=== PATIENT | male | born 1945 | race Caucasian/White ===

== ENCOUNTER 2023-01-04 23:21 | Inpatient (IN) | payer MEDICARE ==
[~2023-01-04] VITALS: Ht 180.3 cm; Wt 99.3 kg
--- NOTE | 2023-01-04 23:21 | NUR ---
[id number] FROM HOME C/O WITNESSED SEIZURES X3 (1ST BY 2-3MIN LONG, 2ND & 3RD BY EMS 2-3MIN LONG). PT HAS HX SZR, ON DEPAKOTE, GABAPENTIN, WHICH HE TOOK AT HIS NORMAL TIMES TODAY. 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 WAS GIVEN VERSED 5MG INSPECTOR CRYSTAL BUT HAS NOT REGAINED CONSCIOUSNESS SINCE 3RD SEIZURE. LAST SEIZURE EPISODE PER WAS 12/17/22. CL=753 INSPECTOR CRYSTAL. 20GA TO RIGHT AC ESTABLISHED INSPECTOR CRYSTAL. O2SAT WAS 80s UPON EMS ARRIVAL, PLACED ON 15L NRB AND SAT IMPROVED TO 95%. PLACED IN BED WITH SEIZURE PRECAUTIONS IN PLACE.
--- NOTE | 2023-01-04 23:21 | NUR ---
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
--- NOTE | 2023-01-04 23:28 | NUR ---
WD=[id number]
[2023-01-04] MEDS ORDERED: ONDANSETRON HCL/PF 4 MG/2 ML VIAL ONE (23:30)
[2023-01-04] MEDS ORDERED: ONDANSETRON HCL/PF 4 MG/2 ML VIAL IVP ONE (23:30)
--- NOTE | 2023-01-04 23:30 | NUR ---
EMT AT BEDSIDE FOR EKG
--- NOTE | 2023-01-04 23:33 | NUR ---
18G STARTED ON R WRIST. BLOOD COLLECTED AND SENT TO LAB
--- NOTE | 2023-01-04 23:52 | NUR ---
RT AT PT'S BEDSIDE FOR ABG
--- NOTE | 2023-01-04 23:57 | NUR ---
[facility] PAGED
--- NOTE | 2023-01-04 23:58 | NUR ---
PT TAKEN TO CT VIA [facility]
[2023-01-04] MEDS ORDERED: LEVETIRACETAM (500MG) 500 MG/5 ML VIAL IV ONE (23:59)
[2023-01-05] VITALS (19 sets, daily range): BP systolic 96–149; BP diastolic 58–76
[2023-01-05] MEDS ORDERED: LEVETIRACETAM (500MG) 1,000 MG in IV NS 0.9% 100 ML IV SCH ×2
[2023-01-05 00:01] LABS: BASOPHILS # (AUTO) 0.1 K/uL (0.0-0.2); BASOPHILS % (AUTO) 0.9 % (0.0-2.0); EOSINOPHILS % (AUTO) 13.3 % (0.0-6.0); HEMATOCRIT 50 % (39-51); HEMOGLOBIN 16.4 g/dL (13.5-17.5); LYMPHOCYTES # (AUTO) 2.3 K/uL (0.8-4.8); LYMPHOCYTES % (AUTO) 25.5 % (20.0-44.0); MEAN CORPUSCULAR HGB CONC 33 g/dl (31.0-36.0); MEAN CORPUSCULAR VOLUME 94 fL (80-96); MONOCYTES # (AUTO) 0.7 K/uL (0.1-1.30); MONOCYTES % (AUTO) 7.8 % (2.0-12.0); NEUTROPHILS # (AUTO) 4.7 K/uL (1.8-8.9); NEUTROPHILS % (AUTO) 52.5 % (43.0-81.0); PLATELET COUNT (AUTO) 107 K/uL (150-450); RED BLOOD CELL COUNT(AUTO) 5.27 MIL/uL (4.5-6.0)
[2023-01-05] MEDS ORDERED: LEVETIRACETAM (500MG) 500 MG/5 ML VIAL IV ONE (00:02)
--- NOTE | 2023-01-05 00:15 | NUR ---
PT RETURNED FROM CT
[2023-01-05 00:17] LABS: VALPROIC ACID 67 ug/mL (50-100)
[2023-01-05 00:20] LABS: ALANINE AMINOTRANSFERASE 24 U/L (12-78); ALBUMIN 3.7 g/dL (3.4-5.0); ALKALINE PHOSPHATASE 115 U/L (46-116); ASPARTATE AMINOTRANSFERASE 14 U/L (15-37); BILIRUBIN,DIRECT 0.1 mg/dL (0.0-0.2); BILIRUBIN,TOTAL 0.4 mg/dL (0.2-1.0); CALCIUM, SERUM 8.9 mg/dL (8.5-10.1); CARBON DIOXIDE 25 mmol/L (21-32); CHLORIDE 106 mmol/L (98-107); CREATININE 1.5 mg/dL (0.6-1.3); GLUCOSE 123 mg/dL (74-106); POTASSIUM 4.2 mmol/L (3.5-5.1); SODIUM SERUM 141 mmol/L (136-145); TOTAL PROTEIN, SERUM 7.4 g/dL (6.4-8.2); UREA NITROGEN, BLOOD 17 mg/dL (7-18)
--- NOTE | 2023-01-05 00:20 | NUR ---
PRE-INTUBATION V/S 120/107 92 12 100% 15L NRB
--- NOTE | 2023-01-05 00:20 | NUR ---
ADMINISTERED ETOMIDATE 30MG & ROCURONIUM 100MG
--- NOTE | 2023-01-05 00:21 | NUR ---
RT NOTE PT INTUBATED WITH 7.5 ET TUBE @ 23 CM LIP LINE. ET TUBE SECURED VIA ANCHOR FAST. VENT SETTINGS : AC 16, 550, 100%, +5. SUCTION DONE, SMALL THIN WHITE SECRETIONS NOTED. BILATERAL CHEST RISE NOTED. ALARMS ON AND AUDIBLE. VENT PLUGGED TO RED OUTLET. WILL CONTINUE TO MONITOR CLOSELY.
--- NOTE | 2023-01-05 00:21 | NUR ---
INTUBATED BY DR. SHULTZ SIZE 7.5 26CM
[2023-01-05] MEDS ORDERED: PROPOFOL 100 ML ONE (00:23)
--- NOTE | 2023-01-05 00:26 | NUR ---
PROPOFOL DRIP INITIATED @5MCG/KG/HR
[2023-01-05 00:28] LABS: ALCOHOL, BLOOD < 3 mg/dL (0-10)
--- NOTE | 2023-01-05 00:29 | NUR ---
14 FR NG TUBE IN PLACE @58CM
[2023-01-05] MEDS ORDERED: ETOMIDATE 2 MG/ML VIAL IV ONE ×2 (00:30→11:06)
[2023-01-05] MEDS ORDERED: ROCURONIUM BROMIDE 100 MG/10 ML VIAL IV ONE (00:30)
[2023-01-05] MEDS ORDERED: PROPOFOL 100 ML IV ONE (00:30)
[2023-01-05] MEDS ORDERED: IV NS 0.9% 1,000 ML BAG IV ONE (00:30)
--- NOTE | 2023-01-05 00:30 | NUR ---
X-RAY AT BEDSIDE TO CONFIRM PLACEMENT
--- NOTE | 2023-01-05 00:43 | NUR ---
RT NOTE ET TUBE ADVANCED TO 3 CM. PLACEMENT AT 26 CM LIP LINE.
--- NOTE | 2023-01-05 00:46 | NUR ---
VENT SETTINGS PER RT AC 16 PEEP 5 550 100%
[2023-01-05] MEDS ORDERED: IV NS 0.9% 1,000 ML IV ONE (01:00)
--- NOTE | 2023-01-05 01:30 | NUR ---
RT NOTE VENT SETTINGS CHANGED WITH RATE OF 18 AND FIO2 50% PER MD POST ABG RESULTS.
--- NOTE | 2023-01-05 01:50 | NUR ---
REPORT GIVEN TO KEILA KAUR @ICU
[2023-01-05 02:56] LABS: BILIRUBIN,URINE NEGATIVE (NEGATIVE); COLOR,URINE YELLOW (YELLOW); LEUKOCYTE ESTERASE ,URINE NEGATIVE (NEGATIVE); NITRITE, URINE NEGATIVE (NEGATIVE); PH,URINE 5.5 (5.0-8.0); PROTEIN,URINE 2+ mg/dl (NEGATIVE); UGLUCOSE NEGATIVE (NEGATIVE); UROBILINOGEN,URINE 0.2 EU/dL (0.2)
[2023-01-05 02:57] LABS: BACTERIA,URINE Rare /HPF (None Seen); RBC,URINE 0-2 /HPF (0-2); SQUAMOUS EPITHELIAL CELL,UR Few /HPF (None Seen); WBC,URINE 0-2 /HPF (0-3)
[2023-01-05] MEDS ORDERED: ONDANSETRON HCL/PF 4 MG/2 ML VIAL IVP PRN (04:00)
[2023-01-05] MEDS ORDERED: LORAZEPAM INJ 2 MG/ML VIAL IV PRN (04:00)
[2023-01-05] MEDS ORDERED: ACETAMINOPHEN 650 MG/SUPP.RECT RC PRN (04:00)
--- NOTE | 2023-01-05 05:10 | NUR ---
PT TAKEN TO ICU 256 VIA ACLS PROTOCOL WITH RT. VSS. ALL BELONGINGS WITH PT.
[2023-01-05] MEDS: IV NS 0.9% 1,000 ML IV PRN ×2 (05:44→18:34)
[2023-01-05] MEDS: PROPOFOL 100 ML IV PRN ×3 (05:46→09:14)
--- NOTE | 2023-01-05 05:53 | NUR ---
CISSP INITIAL NOTE PT ARRIVED TO UNIT VIA GURNEY. PT RECEIVED INTUBATED SIZE 7.5, MARKED 26 CM AT THE LIP WITH SETTING OF AC 18, TV 550, FIO2 40%, PEEP 5 WITH CURRENT O2SAT OF 99%; NO S/S OF RESP DISTRESS, NO SOB, NON-LABORED AND EQUAL BREATHING. PT ATTACHED TO BEDSIDE MONITOR, SR WITH HR OF 70. LE INTACT AND PATENT, DRAINING CLEAR AND YELLOW URINE. NGT IN LEFT NARE AT 60 CM, POSITIVE PLACEMENT CONFIRMED WITH AUSCULTATION AND POSITIVE CHEST X-RAY. BILATERAL SOFT WRIST RESTRAINTS IN PLACE WITH ACTIVE ORDER. IV ACCESS ON RIGHT WRIST 20G AND RIGHT WRIST 18G WITH NS INFUSING AT 75 ML/HR AND PROPOFOL AT 50 MCG/KG/MIN. BED IN LOWEST POSITION, CALL LIGHT WITHIN REACH, SIDE RAILS UP X3. WILL INITIATE PLAN OF CARE.
--- NOTE | 2023-01-05 06:30 | NUR ---
RN NOTE UPDATED PT'S LIZETT REGARDING PT'S CONDITION. PER LIZETT, WILL VISIT PT AT AROUND 0900. PT'S HOME PHONE NUMBER
[2023-01-05 07:13] LABS: ABG BASE EXCESS -8.6 mmol/L; ABG PCO2 55.1 mmHg (35.0-45.0); ABG PH 7.185 (7.350-7.450); ABG PO2 80.2 mmHg (75.0-100.0); COHb 0.5 % (0.5-1.5); MetHb 0.4 % (0.0-1.5); O2Hb 92.5 % (94.0-97.0); SITE, ABG Right Radial; VENT MODE, BG 100% NRB
[2023-01-05 07:13] LABS: ABG BASE EXCESS -6.3 mmol/L; ABG PCO2 37.7 mmHg (35.0-45.0); ABG PH 7.322 (7.350-7.450); ABG PO2 111.5 mmHg (75.0-100.0); COHb 0.5 % (0.5-1.5); MetHb 0.5 % (0.0-1.5); O2Hb 97.1 % (94.0-97.0); SITE, ABG Right Radial
[2023-01-05 07:13] LABS: ABG BASE EXCESS -5.9 mmol/L; ABG PH 7.289 (7.350-7.450); ABG PO2 383.6 mmHg (75.0-100.0); COHb 0.4 % (0.5-1.5); MetHb 0.6 % (0.0-1.5); O2Hb 98.7 % (94.0-97.0); SITE, ABG Right Radial
--- NOTE | 2023-01-05 07:27 | NUR ---
GUEST EXPERIENCE MANAGER CLOSING NOTE PT REMAINS IN BED SEDATED WITH PROPOFOL AT 50 MCG/KG/MIN. VITALS STABLE; TOLERATING VENT SETTINGS WELL WITH O2SAT CURRENTLY AT 100%. ENDORSED TO DAYSHIFT NURSE.
--- NOTE | 2023-01-05 07:30 | NUR ---
RN OPENING NOTE PT RECEIVED IN BED AND ON MECHANICAL VENT WITH ALL PRESCRIBED SETTINGS TOLERATING WELL O2 SAT 100%. PT SEDATED AT THIS TIME ON DIPRIVAN @50MCG. FC IS IN PLACE DRAINING URINE TO GRAVITY NG TUBE IS IN PLACE L NARE AND IS NPO AT THIS TIME. IV ACCESS R AC 20G AND R WRIST 18G INFUSING WITH DIPRIVAN AND NS @75ML/HR. BED IS LOCKED IN LOWEST POSITION AND ALL HOSPITAL SAFETY MEASURES ARE IN PLACE. WILL CONTINUE TO MONITOR THIS SHIFT.
[2023-01-05] MEDS: ENOXAPARIN SODIUM 40 MG/0.4 ML DISP.SYRIN SQ SCH (08:57)
[2023-01-05] MEDS ORDERED: IV NS 0.9% 250 ML IV PRN (09:30)
[2023-01-05] MEDS ORDERED: LEVOFLOXACIN 750 MG /D5W 150ML 750 MG in PREMIX 1 EA IV SCH (09:30)
[2023-01-05] MEDS ORDERED: VALPROATE 500 MG in IV D5W 100 ML IV SCH (10:00)
--- NOTE | 2023-01-05 10:11 | NUR ---
et tube adjusted (pushed in) from 26 cm to 28 cm halina. Addendum: 01/05/23 at 1012 by GUERITA LEON RT Amended: Links added.
[2023-01-05] MEDS ORDERED: NORMAL SALINE 10 ML DISP.SYRIN IV ONE (11:06)
[2023-01-05] MEDS ORDERED: ROCURONIUM BROMIDE 50 MG/5 ML IV ONE (11:06)
[2023-01-05] MEDS ORDERED: [UNRECOGNIZED DRUG - CODE] PO (12:27)
[2023-01-05] MEDS ORDERED: MODAFINIL PO (12:27)
[2023-01-05] MEDS ORDERED: POLY17PO4 PO (12:27)
[2023-01-05] MEDS ORDERED: MELA5TAB PO (12:27)
[2023-01-05] MEDS ORDERED: EZET10TA16 PO (12:27)
[2023-01-05] MEDS ORDERED: CLON1TAB12 PO (12:27)
[2023-01-05] MEDS ORDERED: PRED5DRO16 LEFTEYE (12:27)
[2023-01-05] MEDS ORDERED: SERT25TA PO (12:27)
[2023-01-05] MEDS ORDERED: ERGO500093 PO (12:27)
[2023-01-05] MEDS ORDERED: SEMA1PEN SQ (12:27)
[2023-01-05] MEDS ORDERED: MAGN200T4 PO (12:27)
[2023-01-05] MEDS ORDERED: GABA300C PO (12:27)
[2023-01-05] MEDS ORDERED: DEXT20TA6 PO (12:27)
[2023-01-05] MEDS ORDERED: DIVA250T47 PO (12:27)
[2023-01-05] MEDS ORDERED: ATOR40TA PO (12:27)
[2023-01-05] MEDS ORDERED: FOLI0.8C PO (12:27)
[2023-01-05] MEDS ORDERED: DORZ10DR11 LEFTEYE (12:27)
[2023-01-05] MEDS ORDERED: PSYL3.4P6 PO (12:27)
[2023-01-05] MEDS: KEPPRA 1000 MG in IV NS 100 ML IV SCH ×2 (13:11→23:59)
--- NOTE | 2023-01-05 13:50 | NUR ---
RT PER DR AGEE RR LOWERED TO 16 AND FIO2 TITRATED TO 30% Addendum: 01/05/23 at 1521 by SOLIS IBANEZ RT Amended: Links added.
--- NOTE | 2023-01-05 15:00 | NUR ---
RN NOTE: NEURO PT UNABLE TO FOLLOW COMMANDS WHEN PROMPTED, BUT FOLLOWS THIS NURSE'S FINGER FROM SIDE TO SIDE. WILL CONTINUE TO MONITOR THIS SHIFT.
--- NOTE | 2023-01-05 16:00 | NUR ---
RN NOTE: NEURO PT UNABLE TO FOLLOW COMMANDS WHEN PROMPTED. PT PULLS AWAY FROM TOUCH AND LIGHT PAIN WHEN SUCTIONING. WILL CONTINUE TO MONITOR THIS SHIFT.
--- NOTE | 2023-01-05 17:14 | NUR ---
RN NOTE: UA UA COLLECTED AT THIS TIME AND READY FOR PICKUP. LAB HAS BEEN NOTIFIED
--- NOTE | 2023-01-05 17:46 | NUR ---
RN NOTE: NEURO PT TRACKS THIS NURSE'S FINGER FROM SIDE TO SIDE AND UP AND DOWN. PT TRACKS FINGER BUT DOES NOT DO SO WHEN ASKED TO FOLLOW COMMANDS. PT UNABLE TO FOLLOW COMMANDS WHEN PROMPTED. WILL CONTINUE TO MONITOR THIS SHIFT.
[2023-01-05 18:17] LABS: BILIRUBIN,URINE NEGATIVE (NEGATIVE); COLOR,URINE YELLOW (YELLOW); LEUKOCYTE ESTERASE ,URINE TRACE (NEGATIVE); NITRITE, URINE NEGATIVE (NEGATIVE); PROTEIN,URINE NEGATIVE (NEGATIVE); UGLUCOSE NEGATIVE (NEGATIVE); UROBILINOGEN,URINE 0.2 EU/dL (0.2)
[2023-01-05 18:27] LABS: BACTERIA,URINE 1+ /HPF (None Seen); RBC,URINE 51-80 /HPF (0-2); SQUAMOUS EPITHELIAL CELL,UR 0-2 /HPF (None Seen)
[2023-01-05 18:28] LABS: URINE AMORPHOUS URATE Few /HPF (None Seen)
[2023-01-05 18:32] LABS: EOSINOPHIL,URINE None Seen
--- NOTE | 2023-01-05 19:00 | NUR ---
OPENING RN NOTES; RECEIVED PT IN BED INTUBATED WITH AC OF16, PEEP 5, FIO2 30% AND TV 550.DOES NOT FOLLOW TRACK ON COMMANDS, ATTEMPTS TO WIGGLE LEFT FINGERS ON COMMANDS. WILL CONTINUE TO MONITOR DURING SHIFT.
--- NOTE | 2023-01-05 19:12 | NUR ---
RN CLOSING NOTE PT IN BED AND ON MECHANICAL VENT WITH ALL PRESCRIBED SETTINGS TOLERATING WELL O2 SAT 96%. PT IS NOT SEDATED AT THIS TIME. PER DR. AGEE, STANDING ORDER TO EXTUBATE IF PT'S NEURO STATUS IMPROVES. FC IS IN PLACE DRAINING URINE TO GRAVITY -530ML. NG TUBE IS IN PLACE L NARE AND IS NPO AT THIS TIME. IV ACCESS R AC 20G AND R WRIST 18G INFUSING WITH NS @75ML/HR. BED IS LOCKED IN LOWEST POSITION AND ALL HOSPITAL SAFETY MEASURES ARE IN PLACE. WILL ENDORSE TO SOLAR ELECTRIC INSTALLER FOR ALBARO.
--- NOTE | 2023-01-05 20:00 | NUR ---
RENAL SCAN DONE BY VAULT CLERK AT BEDSIDE.
[2023-01-05] MEDS: VALPROATE 500 MG in IV D5W 100 ML IV SCH (20:16)
[2023-01-06] VITALS (25 sets, daily range): BP systolic 127–148; BP diastolic 70–79
[2023-01-06 04:37] LABS: BASOPHILS # (AUTO) 0.1 K/uL (0.0-0.2); BASOPHILS % (AUTO) 0.8 % (0.0-2.0); EOSINOPHILS % (AUTO) 1.8 % (0.0-6.0); HEMATOCRIT 47 % (39-51); HEMOGLOBIN 15.4 g/dL (13.5-17.5); LYMPHOCYTES # (AUTO) 1.2 K/uL (0.8-4.8); LYMPHOCYTES % (AUTO) 10.5 % (20.0-44.0); MEAN CORPUSCULAR HGB CONC 33 g/dl (31.0-36.0); MEAN CORPUSCULAR VOLUME 93 fL (80-96); MONOCYTES # (AUTO) 1.6 K/uL (0.1-1.30); MONOCYTES % (AUTO) 13.3 % (2.0-12.0); NEUTROPHILS # (AUTO) 8.6 K/uL (1.8-8.9); NEUTROPHILS % (AUTO) 73.6 % (43.0-81.0); PLATELET COUNT (AUTO) 92 K/uL (150-450); RED BLOOD CELL COUNT(AUTO) 4.99 MIL/uL (4.5-6.0); WHITE BLOOD COUNT (AUTO) 11.8 K/uL (4.3-11.0)
[2023-01-06] MEDS: VALPROATE 500 MG in IV D5W 100 ML IV SCH ×2 (04:46→13:17)
[2023-01-06 04:57] LABS: CALCIUM, SERUM 8.9 mg/dL (8.5-10.1); CREATININE 1.2 mg/dL (0.6-1.3); MAGNESIUM 1.5 mg/dL (1.8-2.4); PHOSPHORUS 3.4 mg/dL (2.5-4.9)
--- NOTE | 2023-01-06 07:00 | NUR ---
CLOSING NOTES; PT STABLE THROUGHOUT SHIFT REPORTED OFF TO DAY RN.
--- NOTE | 2023-01-06 07:10 | NUR ---
CONTAMINATED LAND CONSULTANT NOTE: RECEIVED PT IN BED. AOX1. INTUBATED BUT ABLE TO ANSWER TO SIMPLE QUESTION. ABLE TO DENY PAIN OR DISCOMFORT. NO SOB. NO DYSPNEA. SKIN WARM AND DRY TO TOUCH. AFEBRILE. ON NGT. PATENT AND INTACT. PT WITH' RAC AND R WRIST 18G. PATENT AND INTACT. CALL LIGHT WITHIN REACH.L BED KEPT LOW AND LOCK FOR SAFETY.
--- NOTE | 2023-01-06 07:25 | NUR ---
MEDICAL UNIT SECRETARY NOTE: MD WITH ORDER TO EXTUBATE. RN AND RT AT BEDSIDE. EXTUBATE WITH NO RESP DISTRESS NOTED. NO SOB. NO DYSPNEA. PT IS AAOX1. ABLE TO ANSWER SIMPLE QUESTIONS. ABLE TO DENY PAIN OR DISCOMFORT. ON 5LPM NC. TOLERATING WELL 02SAT 96%.
--- NOTE | 2023-01-06 07:30 | NUR ---
RT PER DR MARTINES ORDER PATIENT WAS WEANED AND EXTUBATED. PLACED ON 5L NC TOLERATED WELL. NO SOB NOTED. KEILA BRO AT BEDSIDE. Addendum: 01/06/23 at 1038 by SOLIS IBANEZ RT Amended: Links added.
[2023-01-06] MEDS: IV NS 0.9% 1,000 ML IV PRN (07:40)
[2023-01-06] MEDS: Magnesium 1GM/D5W 100ML PREMIX 100 ML IV SCH ×2 (09:03→10:24)
[2023-01-06] MEDS: ENOXAPARIN SODIUM 40 MG/0.4 ML DISP.SYRIN SQ SCH (09:07)
[2023-01-06] MEDS: LEVOFLOXACIN 750 MG /D5W 150ML 750 MG in PREMIX 1 EA IV SCH (10:24)
[2023-01-06 10:29] LABS: ABG BASE EXCESS -2.3 mmol/L; ABG OXYGEN SATURATION 94.3 % (92.0-98.5); ABG PCO2 33.9 mmHg (35.0-45.0); ABG PH 7.416 (7.350-7.450); ABG PO2 72.2 mmHg (75.0-100.0); MetHb 0.4 % (0.0-1.5); SITE, ABG Right Radial; VENT MODE, BG 5L NC
[2023-01-06] MEDS: IPRATROPIUM NEB FS 0.5 MG/2.5 ML AMPUL.NEB NEB SCH ×3 (10:30→19:57)
[2023-01-06] MEDS: ALBUTEROL HALF STRENGTH 1.25 MG/3 ML VIAL.NEB NEB SCH ×3 (10:30→19:57)
[2023-01-06] MEDS: KEPPRA 1000 MG in IV NS 100 ML IV SCH (12:02)
--- NOTE | 2023-01-06 13:05 | NUR ---
SQUEEGEE OPERATOR NOTE: SEEN AND EXAMINED BY DR. PAREKH AT BEDSIDE.
--- NOTE | 2023-01-06 18:16 | NUR ---
THEATER MANAGER CLOSING NOTE: PT IN BED AOX1 WITH CONFUSION. ABLE TO DENY PAIN OR DISCOMFORT. S/P EXTUBATED ON 5LPM VIA NC 02SAT 97% NO SOB NO DYSPNEA. SKIN WARM AND DRY TO TOUCH. AFEBRILE . PT ON NGT PATENT AND INTACT. RAC AND R WRIST IV PATENT AND INTACT. NO S/S OF INFILTRATION. CALL LIGHT WITHIN REACH.
--- NOTE | 2023-01-06 19:00 | NUR ---
RN OPENING NOTES; RECEIVED REPORT FROM OUTGOING RN. PT QUIET IN BED. RESPONSE TO COMMANDS BY OPENING EYES AND TRACKING FINGERS. MOTOR HOTEL MANAGER EQUAL AND CAN WIGGLE FINGERS ON COMMAND. IV OF NS INFUSING AT 75 MLS/HR AND ALSO KVO AT 10 MLS/HR. WILL CONTINUE TO MONITOR DURING SHIFT.
--- NOTE | 2023-01-06 19:56 | NUR ---
RT NOTE PT RECEIVED AWAKE ON 5 LPM NASAL CANNULA. PT TOLERATING WELL. SPO2 @ 97, HR 86, RR 20. NO S/S OF DISTRESS NOTED. HHN TX GIVEN ORDERED. WILL CONTINUE TO MONITOR CLOSELY.
[2023-01-06] MEDS ORDERED: LEVETIRACETAM SOL (5 ML) 100 MG/ML UDC NG SCH (21:00)
[2023-01-06] MEDS: DIVALPROEX SODIUM 125 MG CAP.SPRINK NG SCH (22:25)
[2023-01-07] VITALS (24 sets, daily range): BP systolic 112–156; BP diastolic 64–97
[2023-01-07] MEDS: IV NS 0.9% 1,000 ML IV PRN (00:31)
[2023-01-07] MEDS: IPRATROPIUM NEB FS 0.5 MG/2.5 ML AMPUL.NEB NEB SCH ×4 (01:40→20:02)
[2023-01-07] MEDS: ALBUTEROL HALF STRENGTH 1.25 MG/3 ML VIAL.NEB NEB SCH ×4 (01:40→20:02)
--- NOTE | 2023-01-07 01:40 | NUR ---
SPOKEMN WITH ZEYAD AT TRANSFER DEPT AT [facility]. NO BED AT THE TIME. DO COVID TEST JUST BEFORE TRANSFER.
[2023-01-07 04:29] LABS: BASOPHILS # (AUTO) 0.1 K/uL (0.0-0.2); BASOPHILS % (AUTO) 0.5 % (0.0-2.0); EOSINOPHILS % (AUTO) 1.3 % (0.0-6.0); HEMATOCRIT 46 % (39-51); HEMOGLOBIN 15.4 g/dL (13.5-17.5); LYMPHOCYTES # (AUTO) 1.1 K/uL (0.8-4.8); LYMPHOCYTES % (AUTO) 10.6 % (20.0-44.0); MEAN CORPUSCULAR HGB CONC 34 g/dl (31.0-36.0); MEAN CORPUSCULAR VOLUME 94 fL (80-96); MONOCYTES # (AUTO) 1.7 K/uL (0.1-1.30); MONOCYTES % (AUTO) 15.6 % (2.0-12.0); NEUTROPHILS # (AUTO) 7.8 K/uL (1.8-8.9); PLATELET COUNT (AUTO) 86 K/uL (150-450); RED BLOOD CELL COUNT(AUTO) 4.89 MIL/uL (4.5-6.0); WHITE BLOOD COUNT (AUTO) 10.9 K/uL (4.3-11.0)
[2023-01-07 04:42] LABS: ALBUMIN 2.5 g/dL (3.4-5.0); BILIRUBIN,TOTAL 0.8 mg/dL (0.2-1.0); CALCIUM, SERUM 9.1 mg/dL (8.5-10.1); CREATININE 1.1 mg/dL (0.6-1.3); MAGNESIUM 1.7 mg/dL (1.8-2.4); PHOSPHORUS 2.9 mg/dL (2.5-4.9); POTASSIUM 4.5 mmol/L (3.5-5.1); TOTAL PROTEIN, SERUM 6.2 g/dL (6.4-8.2)
[2023-01-07] MEDS: DIVALPROEX SODIUM 125 MG CAP.SPRINK NG SCH ×3 (05:36→22:03)
--- NOTE | 2023-01-07 07:00 | NUR ---
PATIENT STABLE THROUGHOUT SHIFT. REPORTED OFF TO DAY RN.
[2023-01-07 07:44] LABS: LYMPHOCYTES % (MANUAL) 11 % (16-48); NEUTROPHILS % (MANUAL) 73 (42-76)
[2023-01-07 07:45] LABS: EOSINOPHILS % (MANUAL) 3 % (0-4); MONOCYTES % (MANUAL) 13 % (0-11.0)
[2023-01-07] MEDS: ENOXAPARIN SODIUM 40 MG/0.4 ML DISP.SYRIN SQ SCH (09:00)
--- NOTE | 2023-01-07 09:00 | NUR ---
RN NOTES NOTIFIED DR. BABCOCK THAT PT'S LATEST PLT LEVEL IS 86. PER THE DOCTOR, HOLD DOSE AT THIS TIME.
[2023-01-07] MEDS: Magnesium 1GM/D5W 100ML PREMIX 100 ML IV SCH ×2 (09:44→12:12)
[2023-01-07] MEDS ORDERED: FUROSEMIDE 40 MG/4 ML VIAL IV ONE (10:00)
[2023-01-07] MEDS: LEVOFLOXACIN 750 MG /D5W 150ML 750 MG in PREMIX 1 EA IV SCH (10:09)
--- NOTE | 2023-01-07 12:00 | NUR ---
RN NOTES PATIENT SEEN BY SPEECH THERAPIST AND HAS BEEN CLEARED FOR PUREE DIET.
--- NOTE | 2023-01-07 14:30 | NUR ---
RN NOTES NOTIFIED DR. ALMANZA THAT PT WAS VERY AGITATED AND COMBATIVE WHEN ATTEMPTING TO TRANSPORT PT TO MRI. DR. ALMANZA AWARE.
--- NOTE | 2023-01-07 16:20 | NUR ---
RN NOTES RECEIVED CALL FROM [facility] AND SPOKE TO RIZWANA. HE IS CURRENTY WORKING ON ROOM REQUEST FOR PT AND WILL CALL BACK ONCE A ROOM IS AVAILABLE.
--- NOTE | 2023-01-07 18:37 | NUR ---
RN NOTES RECEIVED ANOTHER CALL FROM [facility] STATING THAT THEY WERE UNABLE TO REACH DR. MATUTE FOR PHYSICIAN TO PHYSICIAN REPORT. CALLED AND LEFT A MESSAGE FOR THE DOCTOR TO CALL BACK [facility] AT [phone].
--- NOTE | 2023-01-07 19:00 | NUR ---
RECEIVED REPORT FROM DAY RN. PATIENT IN BED AND STABLE. CONFUSED ASKING ABOUT HIS PHONE. DISORIENRTED TO TIME, PLACE AND PEOPLE. AWAKE AND TALKING. WILL GÉNESIS TO ALIS CALDWELL.
--- NOTE | 2023-01-07 19:31 | NUR ---
RN CLOSING NOTES PT IS COMFORTABLE, ALL DUE MEDS GIVEN. PT HAS BED AVAILABLE PER [facility], BUT PENDING PEER TO PEER REPORT FROM DR. MATUTE. REPORT GIVEN TO BLU PEDRAZA FOR CONTINUATION OF CARE.
--- NOTE | 2023-01-07 23:00 | NUR ---
GIVEN REPORT TO MARYURI PINA RN AT [facility].
--- NOTE | 2023-01-08 00:30 | NUR ---
GIVEN REPORT TO [facility]. PATIENT DISCHARGEDFROM ICU ACCOMPANIED BY [facility] EN ROUTE TO [facility]. AWAKE AND STILL CONFUSED.
== END 2023-01-07 23:50 | disposition short-term general hospital (02) | DRG 100 ==
LOC: ER 23:23 → ICU 01-05 01:46
PROVIDERS: ADMIT Nurse Practitioner Acute Care; ATTEND Nurse Practitioner Acute Care
PROC: 5A1945Z Respiratory Ventilation, 24-96 Consecutive Hours (ICD-10-PCS; principal; 2023-01-05)
PROC: 0BH17EZ Insertion of Endotracheal Airway into Trachea, Via Natural or Artificial Opening (ICD-10-PCS; 2023-01-05)
DX: G40.901 Epilepsy, unspecified, not intractable, with status epilepticus (principal); J96.02 Acute respiratory failure with hypercapnia; N17.0 Acute kidney failure with tubular necrosis; I62.03 Nontraumatic chronic subdural hemorrhage; J69.0 Pneumonitis due to inhalation of food and vomit; G91.2 (Idiopathic) normal pressure hydrocephalus; D68.69 Other thrombophilia; J98.19 Other pulmonary collapse; G93.41 Metabolic encephalopathy; J98.11 Atelectasis; Z20.822 Contact with and (suspected) exposure to COVID-19; Z86.73 Personal history of transient ischemic attack (TIA), and cerebral infarction without residual deficits; Z95.2 Presence of prosthetic heart valve; Z98.2 Presence of cerebrospinal fluid drainage device; I10 Essential (primary) hypertension; G47.33 Obstructive sleep apnea (adult) (pediatric); F90.9 Attention-deficit hyperactivity disorder, unspecified type; F32.A Depression, unspecified; E66.01 Morbid (severe) obesity due to excess calories; Z68.30 Body mass index [BMI] 30.0-30.9, adult; D72.10 Eosinophilia, unspecified; R78.5 Finding of other psychotropic drug in blood; F03.90 Unspecified dementia, unspecified severity, without behavioral disturbance, psychotic disturbance, mood disturbance, and anxiety
CPT/HCPCS: 31720; 36415; 36600; 70450-TC; 71045-TC; 76770-TC; 80048-TC; 80053-TC; 80061-TC; 80076-TC; 80164-TC; 81001; 82570-TC; 82962-TC; 83735-TC; 84100-TC; 84300-TC; 84484-TC; 85025-TC; 87081-TC; 92526; 92611-TC; 94002-TC; 94003-TC; 94799-TC; A4216; A4223; G0378; G0480; J1650; J1940; J1953; J1956; J2405; J3475; J3490; J7030; J7050; J7060